=== PATIENT | male | born 1950 | race Two or more races ===

== ENCOUNTER 2017-02-02 11:35 | Inpatient (IN) | payer MEDICARE, MEDICAID ==
[~2017-02-02] VITALS: Ht 185.4 cm; Wt 102.1 kg
[~2017-02-02 11:35] MED LIST: ASPI-1159 PO; ATOR80TA PO; CARV25TA47 PO; FURO80TA3 PO; INSU3INS6 SUBCUT; RIVA20TA PO
[2017-02-02] MEDS ORDERED: ASPIRIN 81MG TABLET PO STA (12:42)
[2017-02-02] MEDS ORDERED: ONDANSETRON HCL 4MG/2ML VIAL IV STA (12:42)
[2017-02-02] MEDS ORDERED: FUROSEMIDE 40MG/4ML VIAL IV STA (12:42)
[2017-02-02] MEDS ORDERED: MORPHINE SULFATE 4 MG/ML CPJ (NOT FOR IM USE) IV STA (12:42)
[2017-02-02 13:10] LABS: HEMATOCRIT. 33.9 % (42.0-52.0); LYMPHOCYTES % 20.1 % (20.0-50.0); MEAN CORPUSCULAR HEMOGLOBIN 29.8 pg (28.0-32.0); MEAN CORPUSCULAR VOLUME 91.8 fL (80.0-94.0); MEAN PLATELET VOLUME 8.7 fl (7.4-10.4); MONOCYTES % 14.6 % (2.0-8.0); NEUTROPHILS % 61.3 % (40.0-76.0); PLATELET 178 x1000/uL (130-400); RED BLOOD CELL COUNT 3.69 mill/uL (4.7-6.1); RED CELL DISTRIBUTION WIDTH 17.3 % (11.6-14.6)
[2017-02-02 13:19] LABS: INR 1.7; PARTIAL THROMBOPLASTIN TIME 29.2 sec (23.4-31.0); PROTHROMBIN TIME 17.9 sec (9.4-11.6)
[2017-02-02 13:28] LABS: CARBON DIOXIDE 27 mEq/L (21-32); CHLORIDE 107 mEq/L (98-107); CREATINE KINASE 141 IU/L (39-308); TROPONIN I 0.02 ng/mL (0.00-0.04)
[2017-02-02] MEDS ORDERED: ENOXAPARIN 100MG/ML SYR SUBCUT ONE (16:15)
[2017-02-02 19:00] VITALS: BP 132/85
[2017-02-02] MEDS ORDERED: HYDROCODONE/ACETAMINOPHEN 5/325MG TABLET PO PRN (19:45)
[2017-02-02] MEDS ORDERED: ACETAMINOPHEN 650MG SUPP PR PRN (19:45)
[2017-02-02] MEDS ORDERED: IPRATROPIUM/ALBUTEROL 0.5-3(2.5)MG/3ML NEB INH PRN (19:45)
[2017-02-02] MEDS ORDERED: CLONIDINE 0.1MG TABLET PO PRN (19:45)
[2017-02-02] MEDS ORDERED: MAGNESIUM/ALUMINUM HYDROXIDE/SIMETHICONE 30ML UDC PO PRN (19:45)
[2017-02-02] MEDS ORDERED: ACETAMINOPHEN 325MG TABLET PO PRN (19:45)
[2017-02-02] MEDS ORDERED: DIPHENHYDRAMINE 50MG/ML VIAL IV PRN (19:45)
[2017-02-02] MEDS ORDERED: ACETAMINOPHEN 650MG/20.3ML UDC GT PRN (19:45)
[2017-02-02] MEDS ORDERED: DEXTROSE 50% WATER 50ML SYRINGE IV PRN (20:00)
[2017-02-02] MEDS: BLOOD SUGAR DIAGNOSTIC STRIP TEST SCH (20:36)
[2017-02-02] MEDS ORDERED: NA PHOS,M-B/NA PHOS,DI-BA ENEMA 118ML PR PRN (21:00)
[2017-02-02] MEDS ORDERED: MEDICATION NOT ON FORMULARY EA (Atorvastatin Calcium (Lipitor) 1 TAB) PO SCH (21:00)
[2017-02-02] MEDS: ATORVASTATIN CALCIUM 40MG TABLET PO SCH ×2 (21:34→21:40)
[2017-02-02] MEDS: ASPIRIN 81MG EC TABLET PO SCH ×2 (21:35→21:40)
[2017-02-02] MEDS: INSULIN LISPRO 100 UNITS/ML SUBCUT SCH (21:35)
[2017-02-02] MEDS: CARVEDILOL 25MG TABLET PO SCH (21:41)
[2017-02-02 22:00] VITALS: BP 132/80
[2017-02-03 00:23] VITALS: BP 92/68
[2017-02-03] MEDS: IPRATROPIUM/ALBUTEROL 0.5-3(2.5)MG/3ML NEB INH SCH ×4 (00:27→21:14)
[2017-02-03 00:53] LABS: CREATINE KINASE 137 IU/L (39-308); CREATINE KINASE MB FRACTION 2.7 ng/mL (0.5-3.6); TROPONIN I < 0.02 ng/mL (0.00-0.04)
[2017-02-03 04:19] VITALS: BP 115/74
[2017-02-03] MEDS: SODIUM CHLORIDE 0.9% INJ 3ML FLUSH IVF SCH ×4 (06:17→22:56)
[2017-02-03] MEDS: BLOOD SUGAR DIAGNOSTIC STRIP TEST SCH ×4 (06:19→21:00)
[2017-02-03] MEDS ORDERED: FUROSEMIDE 80MG TABLET PO SCH (07:15)
[2017-02-03] MEDS: CARVEDILOL 25MG TABLET PO SCH ×2 (08:24→16:34)
[2017-02-03] MEDS: INSULIN LISPRO 100 UNITS/ML SUBCUT SCH ×4 (08:25→21:00)
[2017-02-03 08:35] VITALS: BP 135/63
[2017-02-03 08:58] LABS: HEMATOCRIT. 31.5 % (42.0-52.0); HEMOGLOBIN. 10.2 g/dL (14.0-18.0); MEAN CORPUSCULAR HEMOGLOBIN 29.6 pg (28.0-32.0); MEAN CORPUSCULAR VOLUME 91.1 fL (80.0-94.0); MEAN PLATELET VOLUME 8.9 fl (7.4-10.4); PLATELET 184 x1000/uL (130-400); RED BLOOD CELL COUNT 3.46 mill/uL (4.7-6.1); RED CELL DISTRIBUTION WIDTH 17.2 % (11.6-14.6)
[2017-02-03] MEDS ORDERED: INSULIN GLARGINE HUM REC ANLOG 12 UNIT SUBCUT SCH (09:00)
[2017-02-03] MEDS ORDERED: [UNRECOGNIZED DRUG - OTHER] SUBCUT SCH (09:00)
[2017-02-03] MEDS ORDERED: FUROSEMIDE 40MG/4ML VIAL IV SCH (09:00)
[2017-02-03 09:08] LABS: CARBON DIOXIDE 28 mEq/L (21-32); CHLORIDE 106 mEq/L (98-107); CREATINE KINASE 136 IU/L (39-308); CREATINE KINASE MB FRACTION 2.7 ng/mL (0.5-3.6); HDL CHOLESTEROL 44 mg/dL (40-59); LDL CHOLESTEROL 47 mg/dL (5-100); TROPONIN I 0.02 ng/mL (0.00-0.04)
[2017-02-03] MEDS: INSULIN DETEMIR UD 100 UNITS/ML SYR SUBCUT SCH (09:35)
[2017-02-03 10:57] LABS: CLARITY URINE CLEAR (CLEAR); COLOR URINE YELLOW (YELLOW); GLUCOSE URINE NEGATIVE (NEGATIVE); KETONES URINE NEGATIVE (NEGATIVE); LEUKOCYTE ESTERASE URINE NEGATIVE (NEGATIVE); NITRITE URINE NEGATIVE (NEGATIVE); OCCULT BLOOD URINE NEGATIVE (NEGATIVE); PROTEIN URINE NEGATIVE (NEGATIVE); SPECIFIC GRAVITY URINE 1.019 (1.005-1.030)
[2017-02-03 11:30] LABS: *AMPHETAMINES SCREEN URINE NEGATIVE (NEGATIVE); *BARBITURATES SCREEN URINE NEGATIVE (NEGATIVE); *BENZODIAZEPINES SCREEN URINE NEGATIVE (NEGATIVE); *COCAINE SCREEN URINE PRESUMTIVE POSITIVE (NEGATIVE); CANNABINOID URINE SCREEN NEGATIVE (NEGATIVE); METHADONE URINE SCREEN NEGATIVE (NEGATIVE); OPIATES URINE SCREEN PRESUMTIVE POSITIVE (NEGATIVE); PHENCYCLIDINE URINE SCREEN NEGATIVE (NEGATIVE)
[2017-02-03 11:36] LABS: T4 FREE 1.27 ng/dL (0.76-1.46)
[2017-02-03 12:30] VITALS: BP 119/80
[2017-02-03 16:30] VITALS: BP 106/66
[2017-02-03] MEDS: FUROSEMIDE 40MG/4ML VIAL IVP SCH (16:33)
[2017-02-03] MEDS: RIVAROXABAN 20 MG TABLET PO SCH (16:33)
[2017-02-03 19:03] LABS: CREATINE KINASE MB FRACTION 2.6 ng/mL (0.5-3.6); TROPONIN I 0.07 ng/mL (0.00-0.04)
[2017-02-03 19:59] VITALS: BP 127/63
[2017-02-03 20:09] LABS: PLATELET ESTIMATE NORMAL
[2017-02-04] VITALS: BP 127/82
[2017-02-04] MEDS: IPRATROPIUM/ALBUTEROL 0.5-3(2.5)MG/3ML NEB INH SCH ×4 (02:35→21:02)
[2017-02-04 02:53] LABS: CREATINE KINASE MB FRACTION 2.2 ng/mL (0.5-3.6); TROPONIN I 0.1 ng/mL (0.00-0.04)
[2017-02-04 04:28] VITALS: BP 130/90
[2017-02-04] MEDS: BLOOD SUGAR DIAGNOSTIC STRIP TEST SCH ×4 (06:40→20:13)
[2017-02-04] MEDS: SODIUM CHLORIDE 0.9% INJ 3ML FLUSH IVF SCH ×3 (06:41→21:10)
[2017-02-04] MEDS: INSULIN LISPRO 100 UNITS/ML SUBCUT SCH ×4 (07:50→20:14)
[2017-02-04 08:00] VITALS: BP 122/88
[2017-02-04] MEDS: FUROSEMIDE 40MG/4ML VIAL IVP SCH ×2 (09:56→17:30)
[2017-02-04] MEDS: ASPIRIN 81MG EC TABLET PO SCH (09:56)
[2017-02-04] MEDS: CARVEDILOL 25MG TABLET PO SCH ×2 (09:57→17:30)
[2017-02-04] MEDS: INSULIN DETEMIR UD 100 UNITS/ML SYR SUBCUT SCH (09:58)
[2017-02-04 11:02] LABS: CREATINE KINASE MB FRACTION 2.1 ng/mL (0.5-3.6); TROPONIN I 0.1 ng/mL (0.00-0.04)
[2017-02-04 12:00] VITALS: BP 126/84
[2017-02-04 16:00] VITALS: BP 120/80
[2017-02-04] MEDS: RIVAROXABAN 20 MG TABLET PO SCH (17:30)
[2017-02-04 20:00] VITALS: BP 115/75
[2017-02-04] MEDS: ATORVASTATIN CALCIUM 40MG TABLET PO SCH (20:14)
[2017-02-05] VITALS (7 sets, daily range): BP systolic 99–130; BP diastolic 55–79
[2017-02-05] MEDS: IPRATROPIUM/ALBUTEROL 0.5-3(2.5)MG/3ML NEB INH SCH ×4 (02:03→21:15)
[2017-02-05] MEDS: SODIUM CHLORIDE 0.9% INJ 3ML FLUSH IVF SCH ×3 (05:41→21:32)
[2017-02-05] MEDS: BLOOD SUGAR DIAGNOSTIC STRIP TEST SCH ×4 (06:36→21:32)
[2017-02-05] MEDS: INSULIN LISPRO 100 UNITS/ML SUBCUT SCH ×4 (07:50→21:00)
[2017-02-05] MEDS: CARVEDILOL 25MG TABLET PO SCH ×2 (09:57→17:55)
[2017-02-05] MEDS: ASPIRIN 81MG EC TABLET PO SCH (09:57)
[2017-02-05] MEDS: FUROSEMIDE 40MG/4ML VIAL IVP SCH ×2 (09:58→18:00)
[2017-02-05] MEDS: INSULIN DETEMIR UD 100 UNITS/ML SYR SUBCUT SCH (10:09)
[2017-02-05] MEDS ORDERED: IOHEXOL-350 100 ML BOTTLE ONE (14:23)
[2017-02-05] MEDS ORDERED: SODIUM CHLORIDE 0.9% 10ML VIAL ONE (14:23)
[2017-02-05 17:15] LABS: HEMATOCRIT. 32.3 % (42.0-52.0); HEMOGLOBIN. 10.4 g/dL (14.0-18.0); MEAN CORPUSCULAR HEMOGLOBIN 29.2 pg (28.0-32.0); MEAN CORPUSCULAR VOLUME 90.7 fL (80.0-94.0); MEAN PLATELET VOLUME 7.8 fl (7.4-10.4); PLATELET 181 x1000/uL (130-400); RED BLOOD CELL COUNT 3.56 mill/uL (4.7-6.1); RED CELL DISTRIBUTION WIDTH 17.1 % (11.6-14.6)
[2017-02-05 17:25] LABS: CHLORIDE 102 mEq/L (98-107)
[2017-02-05 17:31] LABS: CARBON DIOXIDE 32 mEq/L (21-32)
[2017-02-05] MEDS: RIVAROXABAN 20 MG TABLET PO SCH (17:55)
[2017-02-05 18:41] LABS: NUCLEATED RED BLOOD CELLS 1 /100 WBC; PLATELET ESTIMATE NORMAL
[2017-02-05] MEDS: ATORVASTATIN CALCIUM 40MG TABLET PO SCH (21:32)
== END 2017-02-05 23:50 | DRG 291 ==
LOC: ER 11:41 → EDBEDREQ 16:55 → 6WST 17:27 → ENRESERV 17:33 → ER 19:14
PROVIDERS: ADMIT Family Medicine; ATTEND Family Medicine
PROC: 02HV33Z Insertion of Infusion Device into Superior Vena Cava, Percutaneous Approach (ICD-10-PCS; principal; 2017-02-02)
DX: I11.0 Hypertensive heart disease with heart failure (principal); E43 Unspecified severe protein-calorie malnutrition; J96.00 Acute respiratory failure, unspecified whether with hypoxia or hypercapnia; I82.432 Acute embolism and thrombosis of left popliteal vein; J44.1 Chronic obstructive pulmonary disease with (acute) exacerbation; J98.11 Atelectasis; I50.43 Acute on chronic combined systolic (congestive) and diastolic (congestive) heart failure; I42.9 Cardiomyopathy, unspecified; D63.8 Anemia in other chronic diseases classified elsewhere; E11.51 Type 2 diabetes mellitus with diabetic peripheral angiopathy without gangrene; E11.621 Type 2 diabetes mellitus with foot ulcer; E78.5 Hyperlipidemia, unspecified; I36.1 Nonrheumatic tricuspid (valve) insufficiency; L97.519 Non-pressure chronic ulcer of other part of right foot with unspecified severity; F14.90 Cocaine use, unspecified, uncomplicated; I34.0 Nonrheumatic mitral (valve) insufficiency; N40.0 Benign prostatic hyperplasia without lower urinary tract symptoms; N50.0 Atrophy of testis; N50.89 Other specified disorders of the male genital organs; Z68.29 Body mass index [BMI] 29.0-29.9, adult; Z79.01 Long term (current) use of anticoagulants; Z79.899 Other long term (current) drug therapy; Z79.4 Long term (current) use of insulin; Z79.82 Long term (current) use of aspirin; Z86.711 Personal history of pulmonary embolism; Z87.891 Personal history of nicotine dependence
CPT/HCPCS: 36415; 71010; 71275; 76870; 80053; 80061; 80305; 81003; 82550; 82553; 82962; 83036; 83605; 83690; 83880; 84439; 84443; 84484; 85025; 85379; 85610; 85730; 87040; 93005; 93306; 93970; 93976; 94640; 96372; 96374; 96375; 99285; A4216; J1650; J1815; J1940; J2270; J2405; J7620; Q9967

== ENCOUNTER 2017-09-19 16:50 | Inpatient (IN) | payer BC, MEDICAID ==
[~2017-09-19] VITALS: Ht 185.4 cm; Wt 86.2 kg
[~2017-09-19 16:50] MED LIST changes: +XARELTO
[2017-09-19 17:32] LABS: BASOPHILS % 1.1 % (0.0-2.0); EOSINOPHILS % 1.1 % (0.0-5.0); HEMATOCRIT. 34.4 % (42.0-52.0); HEMOGLOBIN. 10.8 g/dL (14.0-18.0); LYMPHOCYTES % 28.1 % (20.0-50.0); MEAN CORPUSCULAR HEMOGLOBIN 26.1 pg (28.0-32.0); MEAN CORPUSCULAR VOLUME 83.2 fL (80.0-94.0); MEAN PLATELET VOLUME 8.4 fl (7.4-10.4); MONOCYTES % 13.5 % (2.0-8.0); NEUTROPHILS % 56.2 % (40.0-76.0); PLATELET 277 x1000/uL (130-400); RED BLOOD CELL COUNT 4.13 mill/uL (4.7-6.1); RED CELL DISTRIBUTION WIDTH 20.1 % (11.6-14.6)
[2017-09-19 17:35] LABS: CHLORIDE 105 mEq/L (98-107)
[2017-09-19 17:37] LABS: INR 2.1; PARTIAL THROMBOPLASTIN TIME 33.7 sec (23.4-31.0); PROTHROMBIN TIME 21.4 sec (9.4-11.6)
[2017-09-19] MEDS ORDERED: FUROSEMIDE 100MG/10ML VIAL IVP ONE (18:45)
[2017-09-20] VITALS (7 sets, daily range): BP systolic 94–138; BP diastolic 64–85
[2017-09-20] MEDS ORDERED: DEXTROSE 50% WATER 50ML SYRINGE IV PRN (01:45)
[2017-09-20] MEDS: BLOOD SUGAR DIAGNOSTIC STRIP TEST SCH ×4 (06:11→21:00)
[2017-09-20] MEDS: INSULIN LISPRO 100 UNITS/ML SUBCUT SCH ×4 (06:11→21:54)
[2017-09-20 06:19] LABS: EOSINOPHILS % 1.8 % (0.0-5.0); HEMATOCRIT. 30.4 % (42.0-52.0); HEMOGLOBIN. 9.9 g/dL (14.0-18.0); LYMPHOCYTES % 29.2 % (20.0-50.0); MEAN CORPUSCULAR HEMOGLOBIN 26.2 pg (28.0-32.0); MEAN CORPUSCULAR VOLUME 80.7 fL (80.0-94.0); MEAN PLATELET VOLUME 8.6 fl (7.4-10.4); MONOCYTES % 13.9 % (2.0-8.0); NEUTROPHILS % 54.1 % (40.0-76.0); PLATELET 246 x1000/uL (130-400); RED BLOOD CELL COUNT 3.77 mill/uL (4.7-6.1); RED CELL DISTRIBUTION WIDTH 19.9 % (11.6-14.6)
[2017-09-20 07:14] LABS: CHLORIDE 108 mEq/L (98-107)
[2017-09-20] MEDS: POTASSIUM CHLORIDE 20MEQ TABLET SR PO SCH (08:50)
[2017-09-20] MEDS: ASPIRIN 81MG EC TABLET PO SCH (08:50)
[2017-09-20] MEDS: CARVEDILOL 25MG TABLET PO SCH ×2 (08:50→21:36)
[2017-09-20] MEDS ORDERED: FUROSEMIDE 40MG/4ML VIAL IVP SCH ×2 (09:00→14:30)
[2017-09-20] MEDS ORDERED: ACETAMINOPHEN 650MG/20.3ML UDC PO PRN (14:00)
[2017-09-20] MEDS: LEVOFLOXACIN 500MG PREMIX 100 ML IV SCH (14:00)
[2017-09-20] MEDS ORDERED: BISACODYL 5MG TABLET PO PRN (14:00)
[2017-09-20] MEDS ORDERED: GUAIFENESIN 200MG/10ML SUGAR FREE UDC PO PRN (14:15)
[2017-09-20] MEDS ORDERED: POTASSIUM CHLORIDE 10MEQ TABLET SR PO NR (14:30)
[2017-09-20] MEDS: ALBUTEROL (0.5%) 2.5MG/0.5ML NEB HHN SCH ×3 (15:30→20:10)
[2017-09-20] MEDS: RIVAROXABAN 20 MG TABLET PO SCH (16:38)
[2017-09-20] MEDS ORDERED: MEDICATION NOT ON FORMULARY EA (Atorvastatin Calcium (Lipitor) 1 TAB) PO SCH (21:00)
[2017-09-20] MEDS: FUROSEMIDE 40MG/4ML VIAL IVP SCH (21:36)
[2017-09-20] MEDS: DIPHENHYDRAMINE 50MG CAPSULE PO PRN (21:36)
[2017-09-21] VITALS: BP 98/78
[2017-09-21] MEDS: ATORVASTATIN CALCIUM 40MG TABLET PO SCH ×2 (00:23→21:09)
[2017-09-21] MEDS: ALBUTEROL (0.5%) 2.5MG/0.5ML NEB HHN SCH ×4 (02:02→20:41)
[2017-09-21 04:00] VITALS: BP 99/72
[2017-09-21] MEDS: BLOOD SUGAR DIAGNOSTIC STRIP TEST SCH ×4 (06:04→20:58)
[2017-09-21] MEDS: INSULIN LISPRO 100 UNITS/ML SUBCUT SCH ×4 (06:29→21:10)
[2017-09-21 08:00] VITALS: BP 97/72
[2017-09-21] MEDS: FUROSEMIDE 40MG/4ML VIAL IVP SCH ×2 (09:00→21:09)
[2017-09-21] MEDS: CARVEDILOL 25MG TABLET PO SCH ×2 (09:00→20:59)
[2017-09-21 09:17] LABS: HEMATOCRIT. 30.4 % (42.0-52.0); HEMOGLOBIN. 9.9 g/dL (14.0-18.0); MEAN CORPUSCULAR HEMOGLOBIN 26.5 pg (28.0-32.0); MEAN CORPUSCULAR VOLUME 81.4 fL (80.0-94.0); MEAN PLATELET VOLUME 8.6 fl (7.4-10.4); PLATELET 211 x1000/uL (130-400); RED BLOOD CELL COUNT 3.73 mill/uL (4.7-6.1); RED CELL DISTRIBUTION WIDTH 19.8 % (11.6-14.6)
[2017-09-21 09:20] LABS: CHLORIDE 103 mEq/L (98-107)
[2017-09-21] MEDS: POTASSIUM CHLORIDE 20MEQ TABLET SR PO SCH (10:07)
[2017-09-21] MEDS: ASPIRIN 81MG EC TABLET PO SCH (10:07)
[2017-09-21 12:00] VITALS: BP 113/83
[2017-09-21 12:58] LABS: PLATELET ESTIMATE NORMAL
[2017-09-21] MEDS: LEVOFLOXACIN 500MG PREMIX 100 ML IV SCH (15:49)
[2017-09-21 16:00] VITALS: BP 111/76
[2017-09-21] MEDS: RIVAROXABAN 20 MG TABLET PO SCH (17:30)
[2017-09-21 20:00] VITALS: BP 109/79
[2017-09-21] MEDS: DIPHENHYDRAMINE 50MG CAPSULE PO PRN (21:35)
[2017-09-22] VITALS: BP 107/71
[2017-09-22] MEDS: ALBUTEROL (0.5%) 2.5MG/0.5ML NEB HHN SCH ×2 (02:16→09:51)
[2017-09-22 04:00] VITALS: BP 119/86
[2017-09-22 04:58] LABS: CHLORIDE 103 mEq/L (98-107)
[2017-09-22 05:20] LABS: INR 2.9; PROTHROMBIN TIME 30.5 sec (9.4-11.6)
[2017-09-22 05:44] LABS: HEMATOCRIT 34.1 % (42.0-52.0); HEMOGLOBIN 10.8 g/dL (14.0-18.0); MEAN CORPUSCULAR HEMOGLOBIN 25.7 pg (28.0-32.0); MEAN CORPUSCULAR VOLUME 81.4 fL (80.0-94.0); PLATELET 245 x1000/uL (130-400); RED BLOOD CELL COUNT 4.19 mill/uL (4.7-6.1); RED CELL DISTRIBUTION WIDTH 19.8 % (11.6-14.6)
[2017-09-22] MEDS: INSULIN LISPRO 100 UNITS/ML SUBCUT SCH ×4 (07:18→21:00)
[2017-09-22] MEDS: BLOOD SUGAR DIAGNOSTIC STRIP TEST SCH ×4 (07:18→21:00)
[2017-09-22 08:00] VITALS: BP 120/82
[2017-09-22] MEDS: FUROSEMIDE 40MG/4ML VIAL IVP SCH ×2 (09:20→21:00)
[2017-09-22] MEDS: CARVEDILOL 25MG TABLET PO SCH ×2 (09:20→21:00)
[2017-09-22] MEDS: POTASSIUM CHLORIDE 20MEQ TABLET SR PO SCH (09:20)
[2017-09-22] MEDS: ASPIRIN 81MG EC TABLET PO SCH (09:21)
[2017-09-22 12:00] VITALS: BP 102/73
[2017-09-22 12:21] LABS: BG BASE EXCESS 2.8 mmol/L (-2.0-2.0); BG CARBOXYHEMOGLOBIN 0.1 % (0.5-1.5); BG HCO3 ACT 25.9 mmol/L (22.0-26.0); BG OXYHEMOGLOBIN 89.9 % (94.0-97.0); BG PCO2 34.4 mmHg (35.0-45.0); BG PH 7.494 (7.350-7.450); BG PO2 59.7 mmHg (75.0-100.0); BG SAMPLE SITE LEFT BRACHIAL; BG TOTAL HEMOGLOBIN 11.3 g/dL (12.0-18.0); BG VENT MODE NASAL CANNULA
[2017-09-22] MEDS: ALBUTEROL (0.083%) 2.5MG/3ML NEB HHN SCH ×3 (12:58→21:12)
[2017-09-22] MEDS: BUDESONIDE 0.5MG/2ML NEB HHN SCH ×2 (12:58→21:11)
[2017-09-22] MEDS ORDERED: ALBUTEROL (0.5%) 2.5MG/0.5ML NEB HHN ONE (13:00)
[2017-09-22] MEDS: LEVOFLOXACIN 500MG PREMIX 100 ML IV SCH (14:02)
[2017-09-22 16:00] VITALS: BP 116/70
[2017-09-22] MEDS: RIVAROXABAN 20 MG TABLET PO SCH (18:02)
[2017-09-22 20:00] VITALS: BP 118/83
[2017-09-22] MEDS: ATORVASTATIN CALCIUM 40MG TABLET PO SCH (21:00)
[2017-09-23] VITALS: BP 104/74
[2017-09-23] MEDS: ALBUTEROL (0.083%) 2.5MG/3ML NEB HHN SCH ×6 (01:48→23:59)
[2017-09-23 04:00] VITALS: BP 117/88
[2017-09-23 06:34] LABS: HEMOGLOBIN 10.3 g/dL (14.0-18.0); MEAN CORPUSCULAR HEMOGLOBIN 26.2 pg (28.0-32.0); MEAN CORPUSCULAR VOLUME 81.5 fL (80.0-94.0); PLATELET 219 x1000/uL (130-400); RED BLOOD CELL COUNT 3.92 mill/uL (4.7-6.1); RED CELL DISTRIBUTION WIDTH 19.7 % (11.6-14.6)
[2017-09-23 06:59] LABS: CHLORIDE 103 mEq/L (98-107)
[2017-09-23] MEDS: BLOOD SUGAR DIAGNOSTIC STRIP TEST SCH ×4 (07:14→21:02)
[2017-09-23] MEDS: INSULIN LISPRO 100 UNITS/ML SUBCUT SCH ×4 (07:14→21:05)
[2017-09-23 08:00] VITALS: BP 103/64
[2017-09-23] MEDS: BUDESONIDE 0.5MG/2ML NEB HHN SCH ×2 (08:12→20:14)
[2017-09-23] MEDS: CARVEDILOL 25MG TABLET PO SCH ×2 (09:00→21:02)
[2017-09-23] MEDS: FUROSEMIDE 40MG/4ML VIAL IVP SCH ×2 (09:02→21:01)
[2017-09-23] MEDS: ASPIRIN 81MG EC TABLET PO SCH (09:02)
[2017-09-23] MEDS: POTASSIUM CHLORIDE 20MEQ TABLET SR PO SCH (09:02)
[2017-09-23 12:00] VITALS: BP 104/69
[2017-09-23] MEDS: LEVOFLOXACIN 500MG PREMIX 100 ML IV SCH (14:28)
[2017-09-23 16:00] VITALS: BP 109/72
[2017-09-23] MEDS: RIVAROXABAN 20 MG TABLET PO SCH (17:45)
[2017-09-23 20:00] VITALS: BP 117/85
[2017-09-23] MEDS: ATORVASTATIN CALCIUM 40MG TABLET PO SCH (21:02)
[2017-09-23] MEDS: DIPHENHYDRAMINE 50MG CAPSULE PO PRN (22:39)
[2017-09-24] VITALS: BP 100/70
[2017-09-24 04:00] VITALS: BP 100/69
[2017-09-24] MEDS: ALBUTEROL (0.083%) 2.5MG/3ML NEB HHN SCH ×3 (04:00→14:00)
[2017-09-24] MEDS: BLOOD SUGAR DIAGNOSTIC STRIP TEST SCH ×2 (06:30→11:45)
[2017-09-24] MEDS: INSULIN LISPRO 100 UNITS/ML SUBCUT SCH ×2 (06:33→13:51)
[2017-09-24 06:38] LABS: HEMATOCRIT 31.7 % (42.0-52.0); HEMOGLOBIN 10.1 g/dL (14.0-18.0); MEAN CORPUSCULAR HEMOGLOBIN 25.9 pg (28.0-32.0); MEAN CORPUSCULAR VOLUME 81.1 fL (80.0-94.0); PLATELET 206 x1000/uL (130-400); RED BLOOD CELL COUNT 3.91 mill/uL (4.7-6.1); RED CELL DISTRIBUTION WIDTH 19.4 % (11.6-14.6)
[2017-09-24 08:00] VITALS: BP 102/77
[2017-09-24] MEDS: CARVEDILOL 25MG TABLET PO SCH (08:55)
[2017-09-24] MEDS: FUROSEMIDE 40MG/4ML VIAL IVP SCH (08:55)
[2017-09-24] MEDS: ASPIRIN 81MG EC TABLET PO SCH (08:56)
[2017-09-24] MEDS: POTASSIUM CHLORIDE 20MEQ TABLET SR PO SCH (08:56)
[2017-09-24] MEDS: BUDESONIDE 0.5MG/2ML NEB HHN SCH (09:50)
[2017-09-24 12:00] VITALS: BP 107/79
[2017-09-24] MEDS: LEVOFLOXACIN 500MG PREMIX 100 ML IV SCH (13:53)
[2017-09-24 16:09] VITALS: BP 107/79
== END 2017-09-24 18:10 | disposition home or self-care (01) | DRG 291 ==
LOC: ER 18:37 → 5WST 23:18 → EDBEDREQSVC 23:20 → EDBEDREQTM 23:20 → EDBEDREQ 23:20 → ENRESERV 23:48
PROVIDERS: ADMIT Internal Medicine; ATTEND Internal Medicine
DX: I11.0 Hypertensive heart disease with heart failure (principal); J18.1 Lobar pneumonia, unspecified organism; D68.9 Coagulation defect, unspecified; I82.509 Chronic embolism and thrombosis of unspecified deep veins of unspecified lower extremity; E11.9 Type 2 diabetes mellitus without complications; D64.9 Anemia, unspecified; I42.0 Dilated cardiomyopathy; F17.200 Nicotine dependence, unspecified, uncomplicated; I50.43 Acute on chronic combined systolic (congestive) and diastolic (congestive) heart failure; Z86.711 Personal history of pulmonary embolism; Z91.19 Patient's noncompliance with other medical treatment and regimen; Z79.82 Long term (current) use of aspirin
CPT/HCPCS: 36415; 36600; 71045; 80048; 80053; 80061; 82375; 82805; 82962; 83036; 83520; 83690; 83735; 83880; 84484; 85025; 85027; 85379; 85610; 85730; 93005; 93306; 93970; 94618; 94640; 96374; 97162; 99291; J1815; J1940; J1956; J7040; J7611; J7626; Q0163

== ENCOUNTER 2018-08-07 13:57 | Inpatient (IN) | payer BC, MEDICAID ==
[~2018-08-07] VITALS: Ht 185.4 cm; Wt 83.0 kg
[~2018-08-07 13:57] MED LIST changes: -XARELTO
[2018-08-07] MEDS ORDERED: SODIUM CHLORIDE 0.9% 1,000 ML IV ONE (14:37)
[2018-08-07 15:24] LABS: CLARITY URINE CLEAR (CLEAR); COLOR URINE YELLOW (YELLOW); KETONES URINE NEGATIVE (NEGATIVE); LEUKOCYTE ESTERASE URINE NEGATIVE (NEGATIVE); NITRITE URINE NEGATIVE (NEGATIVE); OCCULT BLOOD URINE NEGATIVE (NEGATIVE); PROTEIN URINE NEGATIVE (NEGATIVE); SPECIFIC GRAVITY URINE 1.021 (1.005-1.030)
[2018-08-07 15:50] LABS: *AMPHETAMINES SCREEN URINE NEGATIVE (NEGATIVE); *BARBITURATES SCREEN URINE NEGATIVE (NEGATIVE); *COCAINE SCREEN URINE PRESUMTIVE POSITIVE (NEGATIVE)
[2018-08-07 15:51] LABS: *BENZODIAZEPINES SCREEN URINE NEGATIVE (NEGATIVE); CANNABINOID URINE SCREEN NEGATIVE (NEGATIVE); METHADONE URINE SCREEN NEGATIVE (NEGATIVE); OPIATES URINE SCREEN NEGATIVE (NEGATIVE); PHENCYCLIDINE URINE SCREEN NEGATIVE (NEGATIVE)
[2018-08-07 16:09] LABS: CHLORIDE 103 mEq/L (98-107)
[2018-08-07 16:14] LABS: ETHANOL BLOOD < 10 mg/dL
[2018-08-07 16:23] LABS: HEMATOCRIT. 32.9 % (42.0-52.0); HEMOGLOBIN. 9.8 g/dL (14.0-18.0); MEAN CORPUSCULAR HEMOGLOBIN 22.8 pg (28.0-32.0); MEAN CORPUSCULAR VOLUME 76.6 fL (80.0-94.0); MEAN PLATELET VOLUME 8.7 fl (7.4-10.4); PLATELET 218 x1000/uL (130-400); RED CELL DISTRIBUTION WIDTH 21.1 % (11.6-14.6)
[2018-08-07 16:29] LABS: D-DIMER 1.54 mg/L FEU (<0.50); INR 1.3; PARTIAL THROMBOPLASTIN TIME 27.8 sec (23.4-31.0); PROTHROMBIN TIME 13.1 sec (9.6-11.0)
[2018-08-07] MEDS ORDERED: ASPIRIN 325MG EC TABLET PO ONE (17:15)
[2018-08-07] MEDS ORDERED: IOHEXOL-350 100 ML BOTTLE ONE (19:16)
[2018-08-07 19:51] LABS: PLATELET ESTIMATE NORMAL
[2018-08-07] MEDS ORDERED: ONDANSETRON HCL 4MG/2ML INJ IV PRN (20:15)
[2018-08-07] MEDS ORDERED: GUAIFENESIN 200MG/10ML SUGAR FREE UDC PO PRN (20:15)
[2018-08-07] MEDS ORDERED: IPRATROPIUM/ALBUTEROL 0.5-3(2.5)MG/3ML NEB INH PRN (20:15)
[2018-08-07] MEDS ORDERED: ACETAMINOPHEN 325MG TABLET PO PRN (20:15)
[2018-08-07] MEDS ORDERED: DEXTROSE 50% WATER 50ML SYRINGE IV PRN (20:15)
[2018-08-07] MEDS ORDERED: CLONIDINE 0.1MG TABLET PO PRN (20:15)
[2018-08-07] MEDS ORDERED: MAGNESIUM/ALUMINUM HYDROXIDE/SIMETHICONE 30ML UDC PO PRN (20:15)
[2018-08-07] MEDS ORDERED: DIPHENHYDRAMINE 50MG/ML VIAL IV PRN (20:15)
[2018-08-07] MEDS ORDERED: ATORVASTATIN CALCIUM 40MG TABLET PO SCH (23:00)
[2018-08-07] MEDS: CARVEDILOL 25MG TABLET PO SCH (23:30)
[2018-08-07] MEDS: BLOOD SUGAR DIAGNOSTIC STRIP TEST SCH (23:32)
[2018-08-07] MEDS: SODIUM CHLORIDE 0.9% INJ 3ML FLUSH IVF SCH (23:44)
[2018-08-07] MEDS: FUROSEMIDE 40MG/4ML VIAL IVP SCH (23:44)
[2018-08-07] MEDS: INSULIN LISPRO 100 UNITS/ML SUBCUT SCH (23:45)
[2018-08-08] VITALS (7 sets, daily range): BP systolic 102–126; BP diastolic 65–82
[2018-08-08] MEDS: FUROSEMIDE 40MG/4ML VIAL IVP SCH ×2 (06:42→18:54)
[2018-08-08] MEDS: SODIUM CHLORIDE 0.9% INJ 3ML FLUSH IVF SCH ×2 (06:42→14:08)
[2018-08-08] MEDS: BLOOD SUGAR DIAGNOSTIC STRIP TEST SCH ×3 (06:44→17:45)
[2018-08-08] MEDS: INSULIN LISPRO 100 UNITS/ML SUBCUT SCH ×3 (06:44→18:59)
[2018-08-08] MEDS: IPRATROPIUM/ALBUTEROL 0.5-3(2.5)MG/3ML NEB HHN SCH ×2 (08:16→15:28)
[2018-08-08] MEDS ORDERED: ASPIRIN 81MG EC TABLET PO SCH (09:00)
[2018-08-08] MEDS ORDERED: ENOXAPARIN 40MG/0.4ML SYR SUBCUT SCH (10:00)
[2018-08-08] MEDS ORDERED: INSULIN GLARGINE UD 100 UNITS/ML SYR SUBCUT SCH (10:00)
[2018-08-08] MEDS: CARVEDILOL 25MG TABLET PO SCH (11:33)
== END 2018-08-08 19:32 | disposition home or self-care (01) | DRG 74 ==
LOC: ER 13:57 → 5WST 18:47 → EDBEDREQ 18:50 → ENRESERV 21:27
PROVIDERS: ADMIT Internal Medicine; ATTEND Internal Medicine
DX: G90.8 Other disorders of autonomic nervous system (principal); I50.22 Chronic systolic (congestive) heart failure; I82.432 Acute embolism and thrombosis of left popliteal vein; I11.0 Hypertensive heart disease with heart failure; E11.65 Type 2 diabetes mellitus with hyperglycemia; F19.10 Other psychoactive substance abuse, uncomplicated; E78.00 Pure hypercholesterolemia, unspecified; Z83.3 Family history of diabetes mellitus; Z86.711 Personal history of pulmonary embolism; Z79.82 Long term (current) use of aspirin
CPT/HCPCS: 36415; 71045; 71275; 80305; 80320; 82962; 83880; 84484; 85379; 93005; 93970; 94640; 96374; 99285; J1650; J1815; J1940; J7030; J7620; Q9967; G0480